=== PATIENT | female | born 1975 | race Caucasian/White ===

== ENCOUNTER 2018-08-05 14:07 | Observation (INO) | payer SELFPAY ==
[2018-08-05] MEDS ORDERED: NA CHLORIDE 0.9% 1,000 ML ONE (15:56)
[2018-08-05 16:16] LABS: ALT/SGPT 52 U/L (12-78); AST/SGOT 25 U/L (15-37); Albumin 3.5 g/dL (3.4-5.0); Alkaline Phosphatase 126 U/L (45-117); BUN Blood Urea Nitrogen 7 mg/dL (7-18); Bicarbonate 31 mmol/L (21-32); Bilirubin Direct < 0.1 mg/dL (0-0.2); Bilirubin Total 0.2 mg/dL (0.2-1.0); CKMB Creatine Kinase MB < 1.0 ng/mL (0.3-3.6); Creatine Phosphokinase 47 U/L (26-192); Glucose Level 127 mg/dL (74-106); Lipase 219 U/L (73-393); NT PRO-BNP 48 pg/mL (<125); Potassium 3.9 mmol/L (3.5-5.1); Protein, Total 7.5 g/dL (6.4-8.2); Sodium Level 138 mmol/L (136-145); Troponin (Emerg Dept Use Only) < 0.02 ng/mL (0.0-0.045)
[2018-08-05 16:18] LABS: Absolute Lymphocytes (CBC) 1.8 K/uL (0.7-4.9); Absolute Monocytes 0.4 K/uL (0.1-1.3); Absolute Neutrophil 4.3 K/uL (1.8-8.0); Basophils % 0.4 % (0-1.3); Eosinophils % 1.1 % (0-4.4); Hematocrit 42.3 % (36.0-45.0); Lymphocytes % 27.2 % (15.3-44.8); MCH 29.1 pg (27.0-35.0); MCV 84.1 fL (80-100); RBC Red Blood Cell Count 5.03 M/uL (3.86-4.86)
[2018-08-05 16:20] LABS: Protime INR 0.94
--- NOTE | 2018-08-05 17:07 | ER ---
Nurse's Notes [facility] Name: Lui Jo Age: 43 yrs Sex: Female : 1975 Arrival Date: 08/05/2018 Time: 14:10 Bed 13 Private MD: Mamadou Mcarthur Diagnosis: Other chest pain;Dyspnea Presentation: 08/05 14:13 Presenting complaint: Patient states: " All day I have been feeling SOB and both of my ph hands are numb and tingly, my chest feel tight too." Pt tachypneic in triage but able to speak in full sentences w/ Spo2 98%. Transition of care: patient was not received from another setting of care. Onset of symptoms was August 05, 2018. Risk Assessment: Do you want to hurt yourself or someone else? Patient reports no desire to harm self or others. Initial Sepsis Screen: Does the patient meet any 2 criteria? No. Patient's initial sepsis screen is negative. Does the patient have a suspected source of infection? No. Patient's initial sepsis screen is negative. Care prior to arrival: None. 14:13 Method Of Arrival: Ambulatory ph 14:13 Acuity: SHAWN 3 ph Triage Assessment: 14:18 General: Appears in no apparent distress. obese, Behavior is cooperative, anxious. ph Pain: Complains of pain in chest. Respiratory: Reports shortness of breath Airway is patent Respiratory effort is even, unlabored, Respiratory pattern is tachypnea Onset: The symptoms/episode began/occurred this morning, the patient has mild shortness of breath. Derm: Skin is intact, is healthy with good turgor, Skin is pink, warm \\T\\ dry. 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 - Social history:: Smoking status: Patient/guardian denies using tobacco. - Ebola Screening: : No symptoms or risks identified at this time. Screenin:35 Abuse screen: Denies threats or abuse. Nutritional screening: No deficits noted. rb1 Tuberculosis screening: No symptoms or risk factors identified. Fall Risk None identified. Assessment: 14:35 General: Appears in no apparent distress. comfortable, obese, Behavior is calm, rb1 cooperative, Denies fever. Pain: Complains of pain in left breast Pain currently is 7 out of 10 on a pain scale. Pain began today. Neuro: Level of Consciousness is awake, alert, obeys commands, Oriented to person, place, time, situation, Reports numbness in bilateral hands. Cardiovascular: Capillary refill < 3 seconds is brisk in bilateral fingers Rhythm is regular. Respiratory: Reports shortness of breath at rest Airway is patent Respiratory effort is even, unlabored, Respiratory pattern is regular, symmetrical, Breath sounds are clear bilaterally. GI: No signs and/or symptoms were reported involving the gastrointestinal system. : No signs and/or symptoms were reported regarding the genitourinary system. Derm: Skin is pink, warm \\T\\ dry. Musculoskeletal: Range of motion: intact in all extremities. 15:30 Reassessment: Patient appears in no apparent distress at this time. No changes from rb1 previously documented assessment. Family at bedside. 16:30 Reassessment: Patient appears in no apparent distress at this time. Patient and/or rb1 family updated on plan of care and expected duration. Pain level reassessed. Patient is alert, oriented x 3, equal unlabored respirations, skin warm/dry/pink. 17:18 Reassessment: Patient appears in no apparent distress at this time. No changes from rb1 previously documented assessment. pt. went to CT. 18:15 Reassessment: Patient appears in no apparent distress at this time. Patient and/or rb1 family updated on plan of care and expected duration. Pain level reassessed. Patient is alert, oriented x 3, equal unlabored respirations, skin warm/dry/pink. Patient states feeling better. 19:39 General: Appears in no apparent distress. comfortable, obese, Behavior is calm, ao cooperative, Denies fever. Pain: Denies pain. Neuro: Level of Consciousness is awake, alert, obeys commands, Oriented to person, place, time, situation, Moves all extremities. Full function Speech is normal. Cardiovascular: Capillary refill < 3 seconds is brisk in bilateral fingers. Respiratory: Airway is patent Respiratory effort is even, unlabored, Respiratory pattern is regular, symmetrical, Breath sounds are clear bilaterally. GI: Abdomen is non-distended. : No signs and/or symptoms were reported regarding the genitourinary system. Derm: Skin is pink, warm \\T\\ dry. Musculoskeletal: Range of motion: intact in all extremities. Vital Signs: 14:16 BP 162 / 95; Pulse 105; Resp 28; Temp 97.8(TE); Pulse Ox 98% on R/A; Weight 90.72 kg; ph Height 5 ft. 2 in. (157.48 cm); 15:00 BP 129 / 88; Pulse 87; Resp 24; Pulse Ox 98% on R/A; rb1 16:00 BP 142 / 85; Pulse 80; Resp 20; Pulse Ox 97% on R/A; rb1 17:00 BP 147 / 99; Pulse 76; Resp 19; Pulse Ox 99% on R/A; rb1 17:30 BP 152 / 68; Pulse 84; Resp 17; Pulse Ox 98% on R/A; rb1 18:28 BP 129 / 87; Pulse 66; Resp 18; Pulse Ox 98% on R/A; rb1 19:41 BP 126 / 82; Pulse 62; Resp 16; Pulse Ox 98% ; ao 14:16 Body Mass Index 36.58 (90.72 kg, 157.48 cm) ph ED Course: 14:10 Patient arrived in ED. mr 14:11 Mamadou Mcarthur MD is Private Physician. mr 14:16 Triage completed. ph 14:17 Arm band placed on. ph 14:35 Patient has correct armband on for positive identification. Bed in low position. Call rb1 light in reach. Side rails up X 1. Pulse ox on. NIBP on. Warm blanket given. 14:39 EKG done, by orthophotography technician. reviewed by Boubacar Coy MD. at1 14:48 Zeny Amador, FAITH is Primary Nurse. rb1 15:17 Boubacar Coy MD is Attending Physician. bean 15:52 X-ray completed. Portable x-ray completed in exam room. Patient tolerated procedure jr1 well. 15:53 XRAY Chest (1 view) In Process Unspecified. EDMS 15:58 Initial lab(s) drawn, by nh, sent to lab. Urine collected: clean catch specimen, clear. jl7 Inserted saline lock: 20 gauge in right antecubital area, using aseptic technique. Blood collected. 17:05 Rosalind Mukherjee MD is Hospitalizing Provider. bean 19:00 Report given to FAITH Perez. rb1 20:01 No provider procedures requiring assistance completed. Patient admitted, IV remains in ao place. Administered Medications: 15:55 Drug: NS 0.9% 1000 ml Route: IV; Rate: 125 ml/hr; Site: right antecubital; rb1 20:02 Follow up: IV Status: Infusion continued upon admission ao 17:45 Drug: Aspirin Chewable Tablet 324 mg Route: PO; rb1 18:15 Follow up: Response: No adverse reaction rb1 17:45 Drug: Pepcid 20 mg Route: IVP; Site: right antecubital; rb1 18:00 Follow up: Response: No adverse reaction rb1 17:45 Drug: Lopressor (metoprolol TARTRATE) 50 mg Route: PO; rb1 18:15 Follow up: Response: No adverse reaction rb1 17:45 Drug: Lovenox 1 mg/kg Route: Sub-Q; Site: right lower abdomen; rb1 18:00 Follow up: Response: No adverse reaction rb1 Outcome: 17:06 Decision to Hospitalize by Provider. [facility] 20:01 Admitted to Tele accompanied by tech, room 404. ao 20:01 Condition: stable 20:01 Instructed on the need for admit. 20:02 Patient left the ED. ao Signatures: Dispatcher [employer] EDMS Boubacar Coy MD MD cha Rivera, Maria mr Bertha Gordillo jr1 Amy Cazares, director safety council EKG Tat1 Indy Barrett RN RN ph Barber, Rebecca, RN RN rb1 Ortiz, Alex, RN RN ao Leal, Jahala, RN RN jl7
--- NOTE | 2018-08-05 17:07 | EDPHYS ---
Physician Documentation [facility] Name: Lui Jo Age: 43 yrs Sex: Female : 1975 Arrival Date: 08/05/2018 Time: 14:10 Bed 13 Private MD: Mamadou Mcarthur ED Physician Boubacar Coy HPI: 08/05 17:03 This 43 yrs old Female presents to ER via Ambulatory with complaints of bean Shortness Of Breath, Numbness Of Hand. 17:03 The patient has shortness of breath at rest, with light activity. Onset: The bean symptoms/episode began/occurred just prior to arrival, today. Duration: The symptoms are intermittent, with no pattern. The patient's shortness of breath has no apparent modifying factors. Associated signs and symptoms: The patient has no apparent associated signs or symptoms. Severity of symptoms: At their worst the symptoms were moderate in the emergency department the symptoms have improved moderately. The patient has not experienced similar symptoms in the past. 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 - Social history:: Smoking status: Patient/guardian denies using tobacco. - Ebola Screening: : No symptoms or risks identified at this time. ROS: 17:04 Constitutional: Negative for fever, chills, and weight loss, Eyes: Negative for injury, bean pain, redness, and discharge, ENT: Negative for injury, pain, and discharge, Neck: Negative for injury, pain, and swelling, Abdomen/GI: Negative for abdominal pain, nausea, vomiting, diarrhea, and constipation, Back: Negative for injury and pain, : Negative for injury, bleeding, discharge, and swelling, MS/Extremity: Negative for injury and deformity, Skin: Negative for injury, rash, and discoloration, Neuro: Negative for headache, weakness, numbness, tingling, and seizure, Psych: Negative for depression, anxiety, suicide ideation, homicidal ideation, and hallucinations, Allergy/Immunology: Negative for hives, rash, and allergies, Endocrine: Negative for neck swelling, polydipsia, polyuria, polyphagia, and marked weight changes, Hematologic/Lymphatic: Negative for swollen nodes, abnormal bleeding, and unusual bruising. 17:04 Cardiovascular: Positive for chest pain, palpitations. 17:04 Respiratory: Positive for shortness of breath, at rest. Exam: 17:04 Constitutional: This is a well developed, well nourished patient who is awake, alert, bean and in no acute distress. Head/Face: Normocephalic, atraumatic. Eyes: Pupils equal round and reactive to light, extra-ocular motions intact. Lids and lashes normal. Conjunctiva and sclera are non-icteric and not injected. Cornea within normal limits. Periorbital areas with no swelling, redness, or edema. ENT: Nares patent. No nasal discharge, no septal abnormalities noted. Tympanic membranes are normal and external auditory canals are clear. Oropharynx with no redness, swelling, or masses, exudates, or evidence of obstruction, uvula midline. Mucous membranes moist. Neck: Trachea midline, no thyromegaly or masses palpated, and no cervical lymphadenopathy. Supple, full range of motion without nuchal rigidity, or vertebral point tenderness. No Meningismus. Chest/axilla: Normal chest wall appearance and motion. Nontender with no deformity. No lesions are appreciated. Cardiovascular: Regular rate and rhythm with a normal S1 and S2. No gallops, murmurs, or rubs. Normal PMI, no JVD. No pulse deficits. Respiratory: Lungs have equal breath sounds bilaterally, clear to auscultation and percussion. No rales, rhonchi or wheezes noted. No increased work of breathing, no retractions or nasal flaring. Abdomen/GI: Soft, non-tender, with normal bowel sounds. No distension or tympany. No guarding or rebound. No evidence of tenderness throughout. Back: No spinal tenderness. No costovertebral tenderness. Full range of motion. Skin: Warm, dry with normal turgor. Normal color with no rashes, no lesions, and no evidence of cellulitis. MS/ Extremity: Pulses equal, no cyanosis. Neurovascular intact. Full, normal range of motion. Neuro: Awake and alert, GCS 15, oriented to person, place, time, and situation. Cranial nerves II-XII grossly intact. Motor strength 5/5 in all extremities. Sensory grossly intact. Cerebellar exam normal. Normal gait. Psych: Awake, alert, with orientation to person, place and time. Behavior, mood, and affect are within normal limits. 17:04 Musculoskeletal/extremity: DVT Exam: No signs of deep vein thrombosis. no pain, no swelling, no tenderness, negative Homans' sign noted on exam, no appreciated bluish discoloration, no erythema, no increased warmth. Vital Signs: 14:16 BP 162 / 95; Pulse 105; Resp 28; Temp 97.8(TE); Pulse Ox 98% on R/A; Weight 90.72 kg; ph Height 5 ft. 2 in. (157.48 cm); 15:00 BP 129 / 88; Pulse 87; Resp 24; Pulse Ox 98% on R/A; rb1 16:00 BP 142 / 85; Pulse 80; Resp 20; Pulse Ox 97% on R/A; rb1 17:00 BP 147 / 99; Pulse 76; Resp 19; Pulse Ox 99% on R/A; rb1 17:30 BP 152 / 68; Pulse 84; Resp 17; Pulse Ox 98% on R/A; rb1 18:28 BP 129 / 87; Pulse 66; Resp 18; Pulse Ox 98% on R/A; rb1 19:41 BP 126 / 82; Pulse 62; Resp 16; Pulse Ox 98% ; ao 14:16 Body Mass Index 36.58 (90.72 kg, 157.48 cm) ph MDM: 15:17 Patient medically screened. [facility] 17:05 Data reviewed: vital signs, nurses notes, lab test result(s), EKG, radiologic studies, [facility] CT scan, plain films. 08/05 15:24 Order name: Basic Metabolic Panel; Complete Time: 17: [facility] 08/05 15:24 Order name: CBC with Diff; Complete Time: 17: [facility] 08/05 15:24 Order name: Ckmb; Complete Time: 17: [facility] 08/05 15:24 Order name: CPK; Complete Time: 17: [facility] 08/05 15:24 Order name: LFT's; Complete Time: 17: [facility] 08/05 15:24 Order name: Magnesium; Complete Time: 17: [facility] 08/05 15:24 Order name: NT PRO-BNP; Complete Time: 17: [facility] 08/05 15:24 Order name: PT-INR; Complete Time: 17: [facility] 08/05 15:24 Order name: Ptt, Activated; Complete Time: 17:01 [facility] 08/05 15:24 Order name: Troponin (emerg Dept Use Only); Complete Time: 17:01 [facility] 08/05 15:24 Order name: XRAY Chest (1 view); Complete Time: 18:03 [facility] 08/05 15:24 Order name: Lipase; Complete Time: 17:01 [facility] 08/05 16:19 Order name: Urine Dipstick--Ancillary (enter results); Complete Time: 18:03 08/05 16:19 Order name: Urine --Ancillary (enter results); Complete Time: 18:03 08/05 15:24 Order name: EKG; Complete Time: 15:26 [facility] 08/05 15:24 Order name: Cardiac monitoring; Complete Time: 15:56 [facility] 08/05 15:24 Order name: EKG - Nurse/Tech; Complete Time: 15:56 [facility] 08/05 15:24 Order name: IV Saline Lock; Complete Time: 15:55 [facility] 08/05 15:24 Order name: Labs collected and sent; Complete Time: 15:55 [facility] 08/05 15:24 Order name: O2 Per Protocol; Complete Time: 15:55 [facility] 08/05 15:24 Order name: O2 Sat Monitoring; Complete Time: 15:55 [facility] 08/05 15:24 Order name: Urine Dipstick-Ancillary (obtain specimen); Complete Time: 16:44 [facility] 08/05 17:02 Order name: CT Chest For PE Angio [facility] 08/05 17:11 Order name: CONS Physician Consult EDMS 08/05 17:38 Order name: CT; Complete Time: 18:03 EDCA Administered Medications: 15:55 Drug: NS 0.9% 1000 ml Route: IV; Rate: 125 ml/hr; Site: right antecubital; rb1 20:02 Follow up: IV Status: Infusion continued upon admission ao 17:45 Drug: Aspirin Chewable Tablet 324 mg Route: PO; rb1 18:15 Follow up: Response: No adverse reaction rb1 17:45 Drug: Pepcid 20 mg Route: IVP; Site: right antecubital; rb1 18:00 Follow up: Response: No adverse reaction rb1 17:45 Drug: Lopressor (metoprolol TARTRATE) 50 mg Route: PO; rb1 18:15 Follow up: Response: No adverse reaction rb1 17:45 Drug: Lovenox 1 mg/kg Route: Sub-Q; Site: right lower abdomen; rb1 18:00 Follow up: Response: No adverse reaction rb1 Disposition: 08/05/18 17:06 Hospitalization ordered by Rosalind Mukherjee for Observation. Preliminary diagnosis are Other chest pain, Dyspnea. - Bed requested for Telemetry/MedSurg (observation). - Status is Observation. ao - Condition is Stable. - Problem is new. - Symptoms have improved. UTI on Admission? No Signatures: Dispatcher [employer] EDCA Boubacar Coy MD MD cha Hall, Patricia, RN RN Zeny Amador, RN RN rb1 Chris Fountain RN RN Angely Veliz Corrections: (The following items were deleted from the chart) 18:02 17:06 Hospitalization Ordered by Rosalind Mukherjee MD for Observation. Preliminary eb diagnosis is Other chest pain; Dyspnea. Bed requested for Telemetry/MedSurg (observation). Status is Observation. Condition is Stable. Problem is new. Symptoms have improved. UTI on Admission? No. bean 20:02 18:02 08/05/2018 17:06 Hospitalization Ordered by Rosalind Mukherjee MD for Observation. ao Preliminary diagnosis is Other chest pain; Dyspnea. Bed requested for Telemetry/MedSurg (observation). Status is Observation. Condition is Stable. Problem is new. Symptoms have improved. UTI on Admission? No. eb
[2018-08-05 17:27] LABS: Urine Blood NEGATIVE (NEG); Urine Glucose NEGATIVE (NEG); Urine Protein NEGATIVE (NEG)
--- NOTE | 2018-08-05 17:36 | RAD REPORT ---
EXAM DESCRIPTION: CT - Chest For Pe Angio - 08/05/2018 5:23 pm CLINICAL HISTORY: Chest pain. CHEST PAIN COMPARISON: Chest For Pe Angio dated 12/15/2017 TECHNIQUE: CT angiogram of the pulmonary arteries was performed with MIP. All CT scans are performed using dose optimization technique as appropriate and may include automated exposure control or mA/KV adjustment according to patient size. FINDINGS: No evidence of pulmonary thromboembolism. No acute aortic finding demonstrated. Mild ground-glass opacity in both lungs is noted suggesting mild interstitial pulmonary edema. No significant pericardial or pleural fluid. Shunt tubing traverses the chest anteriorly. No concerning bony finding. Cholecystectomy clips. IMPRESSION: No evidence of pulmonary thromboembolism. Mild interstitial pulmonary edema suspected.
[2018-08-05] MEDS ORDERED: ASPIRIN 81 MG CHEWABLE TABLET ONE (17:49)
[2018-08-05] MEDS ORDERED: ENOXAPARIN 100 MG/ML SYR SQ ONE (17:49)
[2018-08-05] MEDS ORDERED: METOPROLOL TAR 50 MG TAB ONE (17:49)
--- NOTE | 2018-08-05 17:49 | P.HP ---
Certification for Inpatient Patient admitted to: Observation With expected LOS: <2 Midnights Patient will require the following post-hospital care: None Practitioner: I am a practitioner with admitting privileges, knowledge of patient current condition, hospital course, and medical plan of care. Services: Services provided to patient in accordance with Admission requirements found in Title 42 Section 412.3 of the Code of Federal Regulations Patient History Date of Service: 08/05/18 Primary Care Provider: None Reason for admission: Chest Pain History of Present Illness: 43-year-old female with no significant past medical history however states that she has been diagnosed with hypertension diabetes in the past does not take any medications for it presenting to the ED complaining of having some chest pain. Patient stated that the chest pain started this morning while she was resting and is in her left breast area which is sharp and shooting in nature. It is worse with 8/10 and movement makes the pain even worse. Patient stated that she has been having some left-sided arm numbness for past couple of days and has been getting progressive worse as well. Patient denies having any nausea vomiting abdominal pain or any other associated symptoms. Positive family history of coronary artery disease in her young age. Patient denies having any smoking alcohol or any drug abuse at this time. In the ER patient still complaining of having some chest pain. Troponin x1 was negative EKG was within normal limits. Patient will be admitted to the hospital for observation for ACS rule out. Most likely patient's symptoms are associated with anxiety versus GERD however will go ahead and rule her out at this time. Allergies codeine Allergy (Unverified 12/16/17 00:28) Unknown PENICILLINS Allergy (Uncoded 08/19/16 15:39) Unknown Review of Systems 10-point ROS is otherwise unremarkable Physical Examination - Physical Exam General: Alert, In no apparent distress HEENT: Atraumatic, PERRLA, Mucous membr. moist/pink, EOMI, Sclerae nonicteric Neck: Supple, 2+ carotid pulse no bruit, No LAD, Without JVD or thyroid abnormality Respiratory: Clear to auscultation bilaterally, Normal air movement Cardiovascular: Regular rate/rhythm, Normal S1 S2 Gastrointestinal: Normal bowel sounds, No tenderness Musculoskeletal: No tenderness Integumentary: No rashes Neurological: Normal gait, Normal speech, Normal strength at 5/5 x4 extr, Normal tone, Normal affect Lymphatics: No axilla or inguinal lymphadenopathy - Studies Laboratory Data (last 24 hrs) 08/05/18 15:49: PT 11.1, INR 0.94, APTT 31.2 08/05/18 15:49: WBC 6.5, Hgb 14.6, Hct 42.3, Plt Count 245 08/05/18 15:49: Sodium 138, Potassium 3.9, BUN 7, Creatinine 0.80, Glucose 127 H , Magnesium 2.0, Total Bilirubin 0.2, AST 25, ALT 52, Alkaline Phosphatase 126 H , Lipase 219 Assessment and Plan - Problems (Diagnosis) (1) Chest pain Current Visit: Yes Status: Acute Plan: Atypical chest pain. Most likely secondary to musculoskeletal versus anxiety. -troponin x1 in the ER negative. EKG within normal limits. -patient was strong family history and uncontrolled hypertension diabetes. -will go ahead and order echo and stress test for the morning. -cardiology consulted at this time. (2) HTN (hypertension) Current Visit: Yes Status: Chronic Plan: Will most likely start patient on lisinopril on discharge. Will await echocardiogram results as this time. (3) Diabetes Current Visit: Yes Status: Acute Plan: Patient will need to be discharged on diabetic medication and she is not currently taking any. Diet and lifestyle modification as well. Will monitor her blood sugar closely here in the hospital Qualifiers: Diabetes mellitus type: type 2 - Plan Patient will be admitted to [facility] [place] floor for observation and ACS rule out. Will trend troponin x2 and get an echo and stress test in the morning. Cardiology has been consulted. Discharge Plan: Home Plan to discharge in: 24 Hours - Advance Directives Does patient have a Living Will: No Does patient have a Durable POA for Healthcare: No - Code Status/Comfort Care Code Status Assessed: Yes Critical Care: No
[2018-08-05] MEDS ORDERED: FAMOTIDINE 20 MG/2 ML VIAL IV ONE (17:50)
--- NOTE | 2018-08-05 17:59 | RAD REPORT ---
EXAM DESCRIPTION: RAD - Chest Single View - 08/05/2018 3:53 pm CLINICAL HISTORY: Shortness of breath COMPARISON: December 15 TECHNIQUE: AP portable chest image was obtained 1545 hours . FINDINGS: Lung volumes are low. No peripheral mass, consolidation or failure. Lung markings are not significantly different from comparison. Heart and vasculature are normal. No measurable pleural effu chaya and no pneumothorax. No gross bony abnormality seen. No acute aortic findings suspected. IMPRESSION: No acute cardiopulmonary process. No significant interval change.
[2018-08-05] MEDS ORDERED: ONDANSETRON 4 MG/2 ML VIAL IV PRN (20:12)
[2018-08-05] MEDS ORDERED: ACETAMINOPHEN 500 MG TAB PO PRN (20:12)
[2018-08-05 20:29] VITALS: BMI 38.7
[2018-08-05] MEDS ORDERED: ATORVASTATIN 40 MG TAB PO SCH (21:00)
[2018-08-05 21:17] LABS: Troponin I < 0.02 ng/mL (0.0-0.045)
[2018-08-05] MEDS: LISINOPRIL 5 MG TAB PO SCH (21:19)
--- NOTE | 2018-08-06 04:18 | EKG ---
Test Date: 2018-08-05 Test Time: 14:22:53 Recruitment Director: TAMRA MEASUREMENT RESULTS: Intervals: Rate: 100 NE: 132 QRSD: 78 QT: 362 QTc: 466 [place]: P: 78 NE: 132 QRS: 32 T: 59 INTERPRETIVE STATEMENTS: Normal sinus rhythm Normal ECG Compared to ECG 12/15/2017 21:56:15 No significant changes Electronically Signed On 08-06-18 04:16:44 CDT by Adrian Blanchard
[2018-08-06 04:26] LABS: Absolute Monocytes 0.4 K/uL (0.1-1.3); Absolute Neutrophil 3.4 K/uL (1.8-8.0); Basophils % 0.6 % (0-1.3); Eosinophils % 1.5 % (0-4.4); Hematocrit 39.6 % (36.0-45.0); Lymphocytes % 33.7 % (15.3-44.8); MCH 29.2 pg (27.0-35.0); MCV 84.2 fL (80-100); MPV 8.9 fL (7.6-11.3); Monocytes % 7.5 % (3.3-12.3); RBC Red Blood Cell Count 4.71 M/uL (3.86-4.86)
[2018-08-06 04:45] LABS: Albumin 3.3 g/dL (3.4-5.0); Bilirubin Total 0.2 mg/dL (0.2-1.0); Potassium 3.9 mmol/L (3.5-5.1); Protein, Total 6.8 g/dL (6.4-8.2)
[2018-08-06 05:39] LABS: Magnesium 2.2 mg/dL (1.8-2.4); Phosphorus 4.3 mg/dL (2.5-4.9)
[2018-08-06] MEDS ORDERED: PANTOPRAZOLE 40MG TABLET PO SCH (06:30)
[2018-08-06] MEDS ORDERED: PNEUMOCOCCAL VACCINE 0.5 ML IMVAC ONE (08:00)
[2018-08-06] MEDS ORDERED: REGADENOSON 0.4 MG/5 ML SYR IV ONE (08:01)
[2018-08-06] MEDS ORDERED: POTASSIUM 25 MEQ EFFERV TAB PO ONE (09:00)
[2018-08-06] MEDS ORDERED: ASPIRIN 81 MG CHEWABLE TABLET PO SCH (09:00)
[2018-08-06] MEDS ORDERED: ENOXAPARIN 40 MG/0.4 ML SQ SCH (09:00)
[2018-08-06 12:44] VITALS: O2SAT 98
--- NOTE | 2018-08-06 13:05 | RAD REPORT ---
EXAM DESCRIPTION: NM - Rest Stress Cardiac Imaging - 08/06/2018 12:55 pm CLINICAL HISTORY: CP Chest pain. COMPARISON: No comparisons TECHNIQUE: The patient was administered approximately 10mCi of Tc 99m Sestamibi prior to resting SPE CT imaging of the heart. The patient was then administered approximately 30 mCi of Tc 99m Sestamibi f ollowing exercise or pharmacologic stress. Multiplanar SPECT images were reviewed. FINDINGS: No stress induced ischemic defect is seen to suggest stress induced ischemia. No fixed def ect is seen to suggest hibernating myocardium or scarred myocardium. The end diastolic volume is 117 ml, the end systolic volume is 74 ml, and the ejection fraction is 37 %. IMPRESSION: No stress induced ischemia.
[2018-08-06] MEDS: LISINOPRIL 5 MG TAB PO SCH (13:16)
--- NOTE | 2018-08-06 13:16 | P.SSS ---
Patient History Date of Service: 08/06/18 Primary Care Provider: None Reason for admission: Chest Pain History of Present Illness: 43-year-old female with no significant past medical history however states that she has been diagnosed with hypertension diabetes in the past does not take any medications for it presenting to the ED complaining of having some chest pain. Patient stated that the chest pain started this morning while she was resting and is in her left breast area which is sharp and shooting in nature. It is worse with 8/10 and movement makes the pain even worse. Patient stated that she has been having some left-sided arm numbness for past couple of days and has been getting progressive worse as well. Patient denies having any nausea vomiting abdominal pain or any other associated symptoms. Positive family history of coronary artery disease in her young age. Patient denies having any smoking alcohol or any drug abuse at this time. In the ER patient still complaining of having some chest pain. Troponin x1 was negative EKG was within normal limits. Patient will be admitted to the hospital for observation for ACS rule out. Most likely patient's symptoms are associated with anxiety versus GERD however will go ahead and rule her out at this time. Allergies codeine Allergy (Unverified 12/16/17 00:28) Unknown PENICILLINS Allergy (Uncoded 08/19/16 15:39) Unknown Home Medications: NK [No Home Meds] 08/05/18 - Past Medical/Surgical History Has patient received pneumonia vaccine in the past: No Diabetic: No -: aneurysm -: seizures -: cholecystectomy -: appendectomy -: hysterectomy -: tonsillectomy -: oophorectomy sarah - Family History Father -: Heart disease, Lung disease, Diabetes, Liver disease Mother -: Heart disease, Lung disease, Diabetes, Cancer Notes: Ca ovary ,uterus - Social History Smoking Status: Former smoker Alcohol use: No CD- Drugs: No Caffeine use: Yes Place of Residence: Home Review of Systems 10-point ROS is otherwise unremarkable Physical Examination - Vital Signs Temperature: 98 F Blood Pressure: 142/81 Pulse: 55 Respirations: 16 Pulse Ox (%): 98 - Physical Exam General: Alert, In no apparent distress HEENT: Atraumatic, PERRLA, Mucous membr. moist/pink, EOMI, Sclerae nonicteric Neck: Supple, 2+ carotid pulse no bruit, No LAD, Without JVD or thyroid abnormality Respiratory: Clear to auscultation bilaterally, Normal air movement Cardiovascular: Regular rate/rhythm, Normal S1 S2 Gastrointestinal: Normal bowel sounds, No tenderness Musculoskeletal: No tenderness Integumentary: No rashes Neurological: Normal gait, Normal speech, Normal strength at 5/5 x4 extr, Normal tone, Normal affect Lymphatics: No axilla or inguinal lymphadenopathy - Studies Laboratory Data (last 24 hrs) 08/05/18 15:49: PT 11.1, INR 0.94, APTT 31.2 08/05/18 15:49: WBC 6.5, Hgb 14.6, Hct 42.3, Plt Count 245 08/05/18 15:49: Sodium 138, Potassium 3.9, BUN 7, Creatinine 0.80, Glucose 127 H , Magnesium 2.0, Total Bilirubin 0.2, AST 25, ALT 52, Alkaline Phosphatase 126 H , Lipase 219 - Diagnosis (Problem(s)) (1) Chest pain Onset Date: 08/06/18 Current Visit: Yes Status: Resolved (2) HTN (hypertension) Onset Date: 08/06/18 Current Visit: Yes Status: Chronic (3) Diabetes Onset Date: 08/06/18 Current Visit: Yes Status: Acute Qualifiers: Diabetes mellitus type: type 2 Treatment Summary: Overall during the hospital stay patient remained stable The patient initially was admitted to the special for chest pain most likely secondary to anxiety versus musculoskeletal pain. Patient has underlying hypertension diabetes which she has not been taking medications for. Patient also had a lipid panel here in the hospital which showed elevated triglycerides and cholesterol. Patient had an echocardiogram done here in the hospital along with stress test which were both negative and within normal limits. Patient's symptoms like mentioned that for our most likely secondary to musculoskeletal pain. Patient however was read started on blood pressure medication while here in the hospital along with hyperlipidemia medications. Patient was educated on diet and exercise as her hemoglobin A1c was 6.4 and was told that she might need to be started on diabetic medication if she her blood sugar is not controlled with diet and exercise alone. - Disposition Disposition: ROUTINE DISCHARGE
[2018-08-06 18:06] VITALS: BP 133/78; TEMP 98
--- NOTE | 2018-08-07 05:48 | CON ---
Date of Consultation: 08/06/2018 Reason For Consultation: Chest pain and shortness of breath. History Of Present Illness: Ms. Jo is a 43-year-old woman who has a history of brain aneurysms i n the past, status post seizure disorder, has a [employer] shunt that was placed in 2009, no previous cardiac history, came in with sharp chest pain, shortness of breath with exertion. No nausea, vomiting, alicia phoresis, PND, orthopnea, pedal edema, palpitation, or syncope. By the time I saw her, she has had a negative chest x-ray, negative EKG, and negative CTA. Troponin was negative. Allergies: SHE IS ALLERGIC TO CODEINE AND PENICILLIN. Review of Systems: Negative. Social History: Negative. Family History: Negative. Medications: At home are none. Physical Examination: Vital Signs: Stable, afebrile. HEENT: Negative. Neck: Supple with no bruit. Chest: Clear. Cardiac: Normal. Abdomen: Benign. Extremities: Reveal no clubbing, cyanosis, or edema. Diagnostic Data: All within normal limits. Impression And Plan: Atypical chest pain, most likely pleuritic. Shortness of breath seemed to be e ither pulmonary or stress related. She has had a history of brain aneurysm, I believe, that had been repaired, and seizure disorder, [employer] shunt secondary to that in 2009. The patient claims that she bragg s not have a physician right now and does not follow up with anybody. She is 43. I recommend to do an echocardiogram and a Lexiscan on her before she goes home. CHETNA/ISAIAS Voice ID: [id number] Report ID: [id number]
--- NOTE | 2018-08-07 08:41 | ECHO ---
HEIGHT: 5 ft 2 in WEIGHT: 212 lb 0 oz DATE OF STUDY: 08/06/[address]: Rosalind Mukherjee MD 2-DIMENSIONAL: YES M.MODE: YES DOPPLER: YES COLOR FLOW: YES TDS: NO PORTABLE: NO DEFINITY: NO BUBBLE STUDY: NO DIAGNOSIS: CHEST PAIN CARDIAC HISTORY: CATHERIZATION: NO SURGERY: NO PROSTHETIC VALVE: NO PACEMAKER: NO MEASUREMENTS (cm) DIASTOLIC (NORMALS) SYSTOLIC (NORMALS) IVSd 1.2 (0.6-1.2) LA Diam 3.3 (1.9-4.0) LVEF 62% LVIDd 3.6 (3.5-5.7) LVIDs 2.5 (2.0-3.5) %FS 32% LVPWd 1.2 (0.6-1.2) Ao Diam 2.8 (2.0-3.7) 2 DIMENSIONAL ASSESSMENT: RIGHT ATRIUM: NORMAL LEFT ATRIUM: NORMAL RIGHT VENTRICLE: NORMAL LEFT VENTRICLE: NORMAL TRICUSPID VALVE: NORMAL MITRAL VALVE: NORMAL PULMONIC VALVE: NORMAL AORTIC VALVE: NORMAL PERICARDIAL EFFUSION: NONE AORTIC ROOT: NORMAL LEFT VENTRICULAR WALL MOTION: NORMAL DOPPLER/COLOR FLOW: NORMAL COMMENTS: NORMAL 2D ECHOCARDIOGRAM WITH DOPPLER. NO WALL MOTION ABNORMALITY. NO EFFUSION. TECHNOLOGIST: Freya VALENTINE
--- NOTE | 2018-08-07 09:26 | TREADPHA ---
DX: CHEST PAIN Date of Study: 08/06/18 Ht: 5 2 Wt: 212 lb 0 oz Consulting Physician: CHELE MEDICATIONS: TYLENOL, LIPITOR, LOVENOX, PRINIVIL, ZOFRAN, PROTONIX, K-LYTE HISTORY: 43 YEAR OLD FEMALE WITH COMPLAINTS OF CHEST PAIN. HISTORY OF HYPERTENSION. PHYSICIAL EXAMINATION: RESTING B.P.: 145/89 RESTING H.R.: 65 RESTING EKG: NORMAL PROTOCOL: LEXISCAN EXERCISE TIME: 3:30 B.P. AT PEAK STRESS: 159/96 IMPRESSION: LEXISCAN INJECTED, CARDIOLITE INJECTED, PER PROTOCOL. SEE NUCLEAR MEDICINE REPORT. COMPLAINTS OF CHEST TIGHTNESS 6/10 AFTER ADMINISTRATION OF MEDICATION. NO VENTRICULAR TACHYCARDIA. NO SUPRA VENTRICULAR TACHYCARDIA.
== END 2018-08-06 17:46 | disposition home or self-care (01) ==
LOC: ER 14:07 → ERHOLD 17:07 → 4TH 19:26
PROVIDERS: ADMIT Family Medicine; ATTEND Family Medicine
DX: R07.9 Chest pain, unspecified (principal); I10 Essential (primary) hypertension; E11.9 Type 2 diabetes mellitus without complications; E78.5 Hyperlipidemia, unspecified; Z88.0 Allergy status to penicillin; Z23 Encounter for immunization
CPT/HCPCS: 36415; 71045; 71275; 78452; 80048; 80053; 80061; 80076; 81003; 81025; 82550; 82553; 82962; 83036; 83690; 83735; 83880; 84100; 84443; 84484; 85025; 85610; 85730; 90670; 93005; 93017; 93306; 96361; 96372; 96374; 99285; A9500; G0009; G0378; J1650; J2785; J7030; Q9967